=== PATIENT | female | born 1990 | race Hispanic/Latino ===

== ENCOUNTER 2018-09-05 22:07 | Emergency (ER) | payer SELFPAY ==
[2018-09-05] MEDS ORDERED: Sodium Chloride 0.9% 1,000 ML IV STA (23:00)
[2018-09-05 23:49] LABS: BASO # 0.03 K/mm3 (0.0-2.0); BASO % 0.3 % (0.0-3.0); EOS # 0.2 (0.0-0.7); EOS % 1.8 % (1.5-5.0); GRAN # 4.78 (1.4-6.5); GRAN % 47.9 % (50.0-68.0); HEMOGLOBIN 13.2 g/dL (12.0-16.0); LYMPH # 4.4 (1.2-3.4); MEAN CELL VOLUME 83.9 fl (80.0-105.0); MEAN CORPUSCULAR HGB CONC 33.4 g/dl (31.0-37.0); MEAN PLATELET VOLUME 10.2 fl (7.0-11.0); MONO # 0.6 (0.1-0.6); RBC 4.71 10^6/uL (3.5-6.1); RED CELL DISTRIBUTION WIDTH 14.2 % (11.5-14.5)
[2018-09-05 23:51] LABS: URINE BILIRUBIN NEGATIVE (NEGATIVE); URINE BLOOD NEGATIVE (NEGATIVE); URINE GLUCOSE (UA) NEGATIVE (NEGATIVE); URINE LEUKOCYTE ESTERASE SMALL Leu/uL (NEGATIVE); URINE PROTEIN TRACE mg/dL (<30 mg/dL); URINE UROBILINOGEN 0.2 E.U./dL (<1 E.U./dL)
[2018-09-05 23:57] LABS: URINE APPEARANCE SL CLOUDY (CLEAR); URINE COLOR YELLOW (YELLOW)
[2018-09-05 23:58] LABS: HCG,QUALITATIVE URINE POSITIVE (NEGATIVE)
[2018-09-06 00:09] LABS: INR 1.05; PARTIAL THROMBOPLASTIN TIME 30.7 Seconds (25.1-36.5)
--- NOTE | 2018-09-06 00:21 | ED PDOC ---
Arrival/HPI - General Historian: Patient - History of Present Illness Narrative History of Present Illness (Text): 09/06/18 00:17 28yo female with no Pmhx who present with complaint of epigastric abdominal pain with associated nausea and vomiting. states she had been having pelvic abdominal pain with nausea for few weeks now, but vomited x 4 today and then started having epigastric pain. Notes that her LMP was July 30 , but she have history of irregular periods and don't thinks she is . she denies urinary symptoms, fever, chills, back pain, diarrhea, constipation, vaginal bleeding, any other complaint. <Judy Velásquez A - Last Filed: 09/06/18 00:40> <Lance Medina - Last Filed: 09/07/18 23:26> - General Chief Complaint: Abdominal Pain Time Seen by Provider: 09/05/18 22:47 Past Medical History - Provider Review Nursing Documentation Reviewed: Yes - Infectious Disease Hx of Infectious Diseases: None - Cardiac Hx Cardiac Disorders: No - Psychiatric Hx Substance Use: No <Judy Velásquez A - Last Filed: 09/06/18 00:40> Family/Social History - Physician Review Nursing Documentation Reviewed: Yes Family/Social History: Unknown Family HX Smoking Status: Never Smoked Hx Alcohol Use: No Hx Substance Use: No <Judy Velásquez A - Last Filed: 09/06/18 00:40> Allergies/Home Meds <Judy Velásquez A - Last Filed: 09/06/18 00:40> <Lance Medina - Last Filed: 09/07/18 23:26> Allergies/Adverse Reactions: Allergies No Known Allergies Allergy (Verified 09/05/18 22:45) Review of Systems - Physician Review All systems were reviewed & negative as marked: Yes - Review of Systems Constitutional: Normal Eyes: Normal ENT: Normal Respiratory: Normal Cardiovascular: Normal Gastrointestinal: Abdominal Pain, Nausea, Vomiting. absent: Constipation, Diarrhea, Hematochezia, Hematemesis Genitourinary Female: Normal Musculoskeletal: Normal Skin: Normal Neurological: Normal Endocrine: Normal Hemo/Lymphatic: Normal Psychiatric: Normal <Judy Velásquez A - Last Filed: 09/06/18 00:40> Physical Exam Vital Signs Reviewed: Yes Temperature: Afebrile Blood Pressure: Normal Pulse: Regular Respiratory Rate: Normal Appearance: Positive for: Well-Appearing, Non-Toxic, Comfortable Pain Distress: None Mental Status: Positive for: Alert and Oriented X 3 - Systems Exam Head: Present: Atraumatic, Normocephalic Pupils: Present: PERRL Extroacular Muscles: Present: EOMI Conjunctiva: Present: Normal Mouth: Present: Moist Mucous Membranes Neck: Present: Normal Range of Motion Respiratory/Chest: Present: Clear to Auscultation, Good Air Exchange. No: Respiratory Distress, Accessory Muscle Use Cardiovascular: Present: Regular Rate and Rhythm, Normal S1, S2. No: Murmurs Abdomen: Present: Normal Bowel Sounds, Other (Soft). No: Tenderness, Distention, Peritoneal Signs, Rebound, Guarding, McBurney's Point Tender, Rovsing's Sign Present Back: Present: Normal Inspection Upper Extremity: Present: Normal Inspection. No: Cyanosis, Edema Lower Extremity: Present: Normal Inspection. No: Edema Neurological: Present: GCS=15, CN II-XII Intact, Speech Normal Skin: Present: Warm, Dry, Normal Color. No: Rashes Psychiatric: Present: Alert, Oriented x 3, Normal Insight, Normal Concentration <Diru,Happiness A - Last Filed: 09/06/18 00:40> Vital Signs Temp Pulse Resp BP Pulse Ox 09/06/18 00:12 98.0 F 72 17 115/72 100 09/05/18 22:50 98.2 F 78 16 112/67 100 <Lance Medina - Last Filed: 09/07/18 23:26> Medical Decision Making ED Course and Treatment: 09/06/18 00:31 28yo female who present with complaint of abdominal pain with associated nonbl oody/billious vomiting x 4 today. sh was not in any distress. Her Upreg was positive in ED. Result was DW the pt. she is . Labs Bet quant Transvaginal US While waiting for lab result and US tech, pt states she wants to sign out AMA. she was advised on the possibility of having ectopic and the rupture and also . She states she understands all this risk but still wants to sign out AMA, because hospital makes her nervous. All these was interpreted by her sister who was by the bedside. She signed out AMA. She had UTI and macrobid rx was given. She was also given vit rx. Strongly advised to f/u with OB. To return to the ED anytime she changes her mind. - Lab Interpretations Lab Results: 09/05/18 23:20 Lab Results 09/05/18 23:20: Urine Color Yellow, Urine Appearance Sl cloudy, Urine pH 6.0, Ur Specific [place] >= 1.030, Urine Protein Trace H, Urine Glucose (UA) Negative, Urine Ketones Trace H, Urine Blood Negative, Urine Nitrate Negative, Urine Bilirubin Negative, Urine Urobilinogen 0.2, Ur Leukocyte Esterase Small H, Urine RBC Pending, Urine WBC Pending, Urine HCG, Qual Positive 09/05/18 23:20: PT 12.0, INR 1.05, APTT 30.7 09/05/18 23:20: WBC 10.0, RBC 4.71, Hgb 13.2, Hct 39.5, MCV 83.9, MCH 28.0, MCHC 33.4, RDW 14.2, Plt Count 238, MPV 10.2, Gran % 47.9 L, Lymph % (Auto) 44.0 H, Robertson % (Auto) 6.0, Eos % (Auto) 1.8, Baso % (Auto) 0.3, Gran # 4.78, Lymph # (Au to) 4.4 H, Robertson # (Auto) 0.6, Eos # (Auto) 0.2, Baso # (Auto) 0.03 - RAD Interpretation Radiology Orders: 09/05/18 23:08 TRANSVAGINAL [US] Stat - Medication Orders Current Medication Orders: Discontinued Medications Famotidine (Pepcid) 20 mg IVP STAT STA Stop: 09/05/18 23:01 Last Admin: 09/05/18 23:43 Dose: 20 mg IVP Administration Document 09/05/18 23:43 IT (Rec: 09/05/18 23:44 IT [id number]) Charges for Administration # of IVP Administrations 1 Sodium Chloride (Sodium Chloride 0.9%) 1,000 mls @ 1,000 mls/hr IV .Q1H STA Stop: 09/05/18 23:59 Last Admin: 09/05/18 23:44 Dose: 1,000 mls/hr eMAR Start Stop Document 09/05/18 23:44 IT (Rec: 09/05/18 23:44 IT [id number]) Intravenous Solution Start Date 09/05/18 Start Time 23:44 Metoclopramide HCl (Reglan) 10 mg IVP STAT STA Stop: 09/05/18 23:01 Last Admin: 09/05/18 23:44 Dose: 10 mg IVP Administration Document 09/05/18 23:44 IT (Rec: 09/05/18 23:44 IT [id number]) Charges for Administration # of IVP Administrations 1 <Diru,Happiness A - Last Filed: 09/06/18 00:40> - Lab Interpretations Microbiology Results: Microbiology Results 09/05/18 23:28 Urine,Clean Catch Urine Culture - Final No Growth (<1,000 CFU/ML) Lab Results: 09/05/18 23:20 09/05/18 23:20 Lab Results 09/05/18 23:20: Beta HCG, Quant 71723.00 H 09/05/18 23:20: Sodium 138, Potassium 3.4 L, Chloride 103, Carbon Dioxide 26, Anion Gap 12, BUN 11, Creatinine 0.6 L, Est GFR ( Amer) > 60, Est GFR (Non-Af Amer) > 60, Random Glucose 104, Calcium 9.3, Magnesium 2.0, Total Bilirubin 0.3, AST 17, ALT 20, Alkaline Phosphatase 57, Total Protein 7.6, Albumin 4.0, Globulin 3.6, Albumin/Globulin Ratio 1.1, Lipase 49 09/05/18 23:20: Urine Color Yellow, Urine Appearance Sl cloudy, Urine pH 6.0, Ur Specific [place] >= 1.030, Urine Protein Trace H, Urine Glucose (UA) Negative, Urine Ketones Trace H, Urine Blood Negative, Urine Nitrate Negative, Urine Bilirubin Negative, Urine Urobilinogen 0.2, Ur Leukocyte Esterase Small H, Urine RBC 0 - 2, Urine WBC 2 - 5, Ur Epithelial Cells 4 - 5, Urine Bacteria Mod, Urine HCG, Qual Positive 09/05/18 23:20: PT 12.0, INR 1.05, APTT 30.7 09/05/18 23:20: WBC 10.0, RBC 4.71, Hgb 13.2, Hct 39.5, MCV 83.9, MCH 28.0, MCHC 33.4, RDW 14.2, Plt Count 238, MPV 10.2, Gran % 47.9 L, Lymph % (Auto) 44.0 H, Robertson % (Auto) 6.0, Eos % (Auto) 1.8, Baso % (Auto) 0.3, Gran # 4.78, Lymph # (Auto) 4.4 H, Robertson # (Auto) 0.6, Eos # (Auto) 0.2, Baso # (Auto) 0.03 - Medication Orders Current Medication Orders: Discontinued Medications Famotidine (Pepcid) 20 mg IVP STAT STA Stop: 09/05/18 23:01 Last Admin: 09/05/18 23:43 Dose: 20 mg IVP Administration Document 09/05/18 23:43 IT (Rec: 09/05/18 23:44 IT [id number]) Charges for Administration # of IVP Administrations 1 Sodium Chloride (Sodium Chloride 0.9%) 1,000 mls @ 1,000 mls/hr IV .Q1H STA Stop: 09/05/18 23:59 Last Admin: 09/05/18 23:44 Dose: 1,000 mls/hr eMAR Start Stop Document 09/05/18 23:44 IT (Rec: 09/05/18 23:44 IT [id number]) Intravenous Solution Start Date 09/05/18 Start Time 23:44 Metoclopramide HCl (Reglan) 10 mg IVP STAT STA Stop: 09/05/18 23:01 Last Admin: 09/05/18 23:44 Dose: 10 mg IVP Administration Document 09/05/18 23:44 IT (Rec: 09/05/18 23:44 IT [id number]) Charges for Administration # of IVP Administrations 1 <Lance Medina - Last Filed: 09/07/18 23:26> - PA / [employer] / Resident Statement MD/DO has reviewed & agrees with the documentation as recorded. <Lance Medina - Last Filed: 09/07/18 23:26> Disposition/Present on Arrival - Present on Arrival Any Indicators Present on Arrival: No History of DVT/PE: No History of Uncontrolled Diabetes: No Urinary Catheter: No History of Decub. Ulcer: No History Surgical Site Infection Following: None - Disposition Have Diagnosis and Disposition been Completed?: Yes Disposition Time: 00:05 <Judy Velásquez - Last Filed: 09/06/18 00:40> <Lance Medina - Last Filed: 09/07/18 23:26> - Disposition Diagnosis: Abdominal pain, , UTI (urinary tract infection) Disposition: AGAINST MEDICAL ADVICE Condition: STABLE Prescriptions: Nitrofurantoin Macrocrystals [Macrobid] 100 mg PO BID #14 cap Vit #76/Iron,Carb/FA [Prenatabs Rx Tablet] 1 each PO DAILY #30 tablet Forms: [employer] ([place]ongolian)
[2018-09-06 00:24] LABS: BLOOD UREA NITROGEN 11 mg/dL (7-21); GFR NON-AFRICAN AMERICAN > 60; URINE BACTERIA MOD (NEG); URINE RBC 0 - 2 /hpf (0-2)
[2018-09-06 00:25] LABS: ALB/GLOB RATIO 1.1 (1.1-1.8); ALT/SGPT 20 U/L (7-56); AST/SGOT 17 U/L (14-36); CALCIUM 9.3 mg/dL (8.4-10.5); LIPASE 49 U/L (23-300)
[2018-09-06 00:34] VITALS: O2SAT 100
[2018-09-06 00:39] VITALS: BP 115/72; PULSE 72; RESP 17; TEMP 98
== END 2018-09-06 00:12 | disposition left against medical advice (07) ==
LOC: ED 22:07
DX: O23.40 Unspecified infection of urinary tract in pregnancy, unspecified trimester (principal); Z3A.00 Weeks of gestation of pregnancy not specified; O26.899 Other specified pregnancy related conditions, unspecified trimester; R10.13 Epigastric pain
CPT/HCPCS: 80053; 81001; 83690; 83735; 84702; 84703; 85025; 85610; 85730; 87086; 96374; 96375; 99284; J2765; J7030

== ENCOUNTER 2018-09-10 18:06 | Emergency (ER) | payer SELFPAY ==
[2018-09-10 18:33] VITALS: RESP 18; TEMP 98.7
--- NOTE | 2018-09-10 19:16 | ED PDOC ---
Arrival/HPI - General Chief Complaint: Female Genitourinary Time Seen by Provider: 09/10/18 18:47 Historian: Patient - History of Present Illness Narrative History of Present Illness (Text): 09/10/18 19:15 28 year old female, with no significant past medical history, presents to the Emergency Department complaining of suprapubic abdominal pain associated with vaginal spotting and vomiting since today. Patient informs 3 episodes of vomiting today and states noticing dark brown blood on her underwear prompting her to present to the Emergency Department for evaluation. Patient was reportedly found on September 05 when she presented to the Emergency Department with abdominal pain, nausea and vomiting. Patient did not have any vaginal bleeding at the times. Patient was diagnosed with UTI and abdominal pain and was pending for an US during the ED course when patient left prior to getting it done. Patient now presents for medical evaluation. Patient denies any fever, chills, diarrhea, chest pain, shortness of breath, cough, headache, dizziness, neck pain, back pain, or any other complaints. Time/Duration: 4-6 hours Symptom Onset: Gradual Symptom Course: Unchanged Quality: Aching Activities at Onset: Light Context: Home Past Medical History - Provider Review Nursing Documentation Reviewed: Yes - Infectious Disease Hx of Infectious Diseases: None - Reproductive Menopause: No - Cardiac Hx Cardiac Disorders: No - Psychiatric Hx Substance Use: No - Anesthesia Hx Anesthesia: No Family/Social History - Physician Review Nursing Documentation Reviewed: Yes Family/Social History: No Known Family HX Smoking Status: Never Smoked Hx Alcohol Use: No Hx Substance Use: No Allergies/Home Meds Allergies/Adverse Reactions: Allergies No Known Allergies Allergy (Verified 09/05/18 22:45) Review of Systems - Physician Review All systems were reviewed & negative as marked: Yes - Review of Systems Constitutional: absent: Fevers Respiratory: absent: SOB, Cough Cardiovascular: absent: Chest Pain, [place] Gastrointestinal: Abdominal Pain, Nausea, Vomiting. absent: Diarrhea Genitourinary Female: Vaginal Bleeding Musculoskeletal: absent: Back Pain, Neck Pain Neurological: absent: Headache, Dizziness Physical Exam Vital Signs Reviewed: Yes Vital Signs Temp Pulse Resp BP Pulse Ox 09/10/18 18:29 98.7 F 73 18 98/70 L 99 Temperature: Afebrile Blood Pressure: Normal Pulse: Regular Respiratory Rate: Normal Appearance: Positive for: Well-Appearing, Non-Toxic, Comfortable Pain Distress: None Mental Status: Positive for: Alert and Oriented X 3 - Systems Exam Head: Present: Atraumatic, Normocephalic Pupils: Present: PERRL Extroacular Muscles: Present: EOMI Conjunctiva: Present: Normal Mouth: Present: Moist Mucous Membranes Respiratory/Chest: Present: Clear to Auscultation Cardiovascular: Present: Regular Rate and Rhythm, Murmurs, Normal S1, S2 Abdomen: Present: Tenderness (mild ), Normal Bowel Sounds (abd soft, bs normoactive, mild TTP lower abd, no rebound) Genitourinary/Pelvic Exam: Present: Normal External Genitalia, Cervical os Nichole sed. No: Vaginal Discharge, Vaginal Bleeding, Odor Back: No: CVA Tenderness Upper Extremity: Present: Normal Inspection Lower Extremity: Present: Normal Inspection Skin: Present: Warm, Dry (entire exam chaperoned by nurse Ngoc), Normal Color Psychiatric: Present: Alert, Oriented x 3 Medical Decision Making ED Course and Treatment: 09/10/18 19:00 Impression: 28 year old female presents to the Emergency Department for suprapub ic abdominal pain, vaginal spotting and vomiting. Plan: -- Labs -- Transvaginal US -- Reassess and disposition Prior Visits: Notes and results from previous visits were reviewed. Progress Notes: 09/10/18 21:05 Name: TRINA SHAH Exam Date: Sep 10, 2018 7:32:21 PM EDT Modality Type: SD\US\SR Description: US - OB 1ST TRIMESTER Gender: F Laterality: Not applicable : 88 Referring Physician: ANDREW VERA History Preg/veg bleeding Comparison None available. Findings Uterus Twin Live intrauterine gestation. Fetus A: CRL equivalent to 6 wks/1 day gestation Gestational sac diameter equivalent to 6 wks/0 days gestation age (Ultrasound estimated): 6 weeks 1 day. Heart rate: 124.19 bpm. Avani-gestational hemorrhage: None. Uterus measures 7.02 x 5.69 x 6.04 cm. No mass Cervix Long and closed. No cervical abnormality seen. Right Ovary Not seen. Left Ovary Not seen. Free Fluid None. Other Findings None. Impression Twin live intrauterine gestation. For fetus A gestational age is 6 weeks 1 day by CRL. Fetus B: CRL equivalent to 6 wks/1 day gestation Gestational sac diameter equivalent to 6 wks/1 day gestation age (Ultrasound estimated): 6 weeks 1 day. Heart rate: 161.09 bpm. Avani-gestational hemorrhage: None. Uterus measures 7.02 x 5.69 x 6.04 cm. No mass Cervix Long and closed. No cervical abnormality seen. Right Ovary Measures 1.97 x 1.9 x 1.76 cm. Left Ovary Measures 2.46 x 1.85 x 2.2 cm. Free Fluid None. Other Findings None. Impression Twin live intrauterine gestation. For fetus B gestational age is 6 weeks 1 day by CRL. Electronically signed on Sep 10, 2018 9:02:35 PM EDT by: Boris Mart M.D., DRE Certified By ABR & [facility] Fellowship Trained MRI and CT Specialist - RAD Interpretation Radiology Orders: 09/10/18 19:00 TRANSVAGINAL [US] Stat - Scribe Statement The provider has reviewed the documentation as recorded by the Scribe Karo Mace. All medical record entries made by the Scribe were at my direction and personally dictated by me. I have reviewed the chart and agree that the record accurately reflects my personal performance of the history, physical exam, medical decision making, and the department course for this patient. I have also personally directed, reviewed, and agree with the discharge instructions and disposition. Disposition/Present on Arrival - Present on Arrival Any Indicators Present on Arrival: No History of DVT/PE: No History of Uncontrolled Diabetes: No Urinary Catheter: No History of Decub. Ulcer: No History Surgical Site Infection Following: None - Disposition Have Diagnosis and Disposition been Completed?: Yes Diagnosis: Threatened miscarriage in early , Twin in first trimester Disposition: HOME/ ROUTINE Disposition Time: 21:21 Patient Plan: Discharge Patient Problems: Current Active Problems Problem Status Onset Threatened miscarriage in early Acute Twin in first trimester Acute Condition: STABLE Discharge Instructions (ExitCare): Threatened Miscarriage, - The First Month Additional Instructions: PABLO MENA, thank you for letting us take care of you today. Your provider was Andrew Vera MD and you were treated for AND BLEEDING. The emergency medical care you received today was directed at your acute symptoms. If you were prescribed any medication, please fill it and take as directed. It may take several days for your symptoms to resolve. Return to the Emergency Department if your symptoms worsen, do not improve, or if you have any other problems. Please contact your doctor or call one of the physicians/clinics you have been referred to that are listed on the Patient Visit Information form that is included in your discharge packet. Call tomorrow for appointment in next 1-2 days. Bring any paperwork you were given at discharge with you along with any medications you are taking to your follow up visit. Our treatment cannot replace ongoing medical care by a primary care provider outside of the emergency department. Thank you for allowing the [facility] team to be part of your care today. Referrals: Basilio Ortiz MD [Staff Provider] - Follow up with primary Forms: [employer] ([place])
[2018-09-10 19:47] LABS: BASO # 0.01 K/mm3 (0.0-2.0); BASO % 0.1 % (0.0-3.0); EOS # 0.2 (0.0-0.7); EOS % 1.6 % (1.5-5.0); GRAN # 5.22 (1.4-6.5); GRAN % 54.3 % (50.0-68.0); LYMPH # 3.6 (1.2-3.4); LYMPH % 37.4 % (22.0-35.0); MEAN CELL VOLUME 83.6 fl (80.0-105.0); MEAN CORPUSCULAR HEMOGLOBIN 27.7 pg (25.0-35.0); MEAN CORPUSCULAR HGB CONC 33.2 g/dl (31.0-37.0); MEAN PLATELET VOLUME 10.3 fl (7.0-11.0); MONO # 0.6 (0.1-0.6); MONO % 6.6 % (1.0-6.0); RBC 4.69 10^6/uL (3.5-6.1); RED CELL DISTRIBUTION WIDTH 14.3 % (11.5-14.5); WHITE BLOOD COUNT 9.6 10^3/ul (4.5-11.0)
[2018-09-10 19:57] LABS: ALB/GLOB RATIO 1.1 (1.1-1.8); ALT/SGPT 18 U/L (7-56); AST/SGOT 18 U/L (14-36); BLOOD UREA NITROGEN 11 mg/dL (7-21); CALCIUM 8.7 mg/dL (8.4-10.5); GFR NON-AFRICAN AMERICAN > 60
[2018-09-10 22:01] VITALS: BP 108/70; PULSE 74; O2SAT 100
--- NOTE | 2018-09-11 10:30 | US ---
Date of service: 09/10/18 Technique: Both transabdominal and endovaginal imaging was performed. Findings: The uterus measures approximately 7.0 x 5.7 x 6.0 cm. Cervix length measures approximately 3.3 cm. This is a twin gestation. Fetus A: The gestational sac measures 1.6 cm and is compatible with a gestational age of 6 weeks 0 days. The crown-rump length measures 0.5 cm and is compatible with a gestational age of 6 weeks 1 day. There is heart motion which measured 124 BPM. Fetus B: The gestational sac measures 1.8 cm and is compatible with a gestational age of 6 weeks 1 day. The crown-rump length measures 0.4 cm and is compatible with a gestational age of 6 weeks 1 day. There is heart motion which measured 161.1 BPM. The right ovary measures 2.0 x 1.9 x 1.8 cm. The left ovary measures 2.5 x 1.9 x 2.2 cm. Blood flow is demonstrated to both ovaries. Impression: Twin gestation. Fetus A: Gestational age 6 weeks 0 days by gestational sac calculation and 6 weeks 1 day by crown-rump length calculation. There is heart motion which measured 124 BPM. Fetus B: Gestational age 6 weeks 1 day by gestational sac calculation and crown-rump length calculation. There is heart motion which measured 161.1 BPM. Advise an anomaly screen at 16-18 weeks gestational age. Preliminary impression was provided by [facility].
== END 2018-09-10 22:03 | disposition home or self-care (01) ==
LOC: ED 18:06
DX: O20.0 Threatened abortion (principal); O30.001 Twin pregnancy, unspecified number of placenta and unspecified number of amniotic sacs, first trimester; Z3A.01 Less than 8 weeks gestation of pregnancy